=== PATIENT | female | born 1970 | race Caucasian/White ===

== ENCOUNTER 2017-03-25 11:44 | Emergency (ER) | payer SELFPAY ==
[2017-03-25 12:47] LABS: Basophils % (Auto) 0.4 % (0.0-1.8); Eosinophils % (Auto) 1.2 % (0.0-4.3); Hemoglobin 13.3 gm/dl (10.1-14.3); Mean Corpuscular HGB Conc 33 % (30-34); Mean Corpuscular Hemoglobin 30 pg (28-32); Mean Corpuscular Volume 91 fl (79-97); Platelet Count 234 K/mm3 (140-440); Red Blood Count 4.42 M/mm3 (3.65-5.03); Red Cell Distribution Width 13.3 % (13.2-15.2); White Blood Count 6.8 K/mm3 (4.5-11.0)
[2017-03-25 13:01] LABS: Partial Thromboplastin Time 29.7 Sec. (24.2-36.6)
[2017-03-25 13:04] LABS: Creatine Kinase 64 units/L (30-135)
[2017-03-25 13:11] LABS: Creatine Kinase MB < 1.0 ng/mL (0.0-4.0)
--- NOTE | 2017-03-25 15:21 | Emergency Department Report ---
ED General Adult HPI - General Chief complaint: Chest Pain Stated complaint: HEADACHE/FACE PAIN Time Seen by Provider: 03/25/17 15:20 Source: patient, insole and outsole splitter Mode of arrival: Ambulatory Limitations: No Limitations - History of Present Illness Initial comments: Apparently there was a substantial language barrier edge triage when this patient arrived. According to the triage note the patient had bilateral jaw pain and neck pain and throat pain felt like it was closing as well as sensory symptoms of the right hand for 2 days. There is no mention of a headache except in the attending reason: "Headache/face pain". Patient had a cardiac workup ordered but did not complain to me of any chest symptoms when I obtained the history and Citizen Of [place]. She did say that she had not had headaches like this before and she was concerned because her right hand felt heavy. She stated that she was able to grasp and use her right hand normally and that she had normal feeling in the right hand. She had no difficulty with her coordination otherwise she denies any problems with gait either. Patient states that at this time she is not having a headache at all. She does admit to some problems with anxiety. She does not have a primary care physician she states. -: Gradual, days(s) Location: head Radiation: non-radiation Quality: aching Consistency: intermittent, now resolved Improves with: none Worsens with: none Associated Symptoms: denies other symptoms (right hand heaviness) Treatments Prior to Arrival: none - Related Data Previous Rx's Medication Instructions Recorded Last Taken Type Butalb/Acetaminophen/Caffeine 1 cap PO Q6HR PRN #10 cap 03/25/17 Unknown Rx [Fioricet 50-300-40 mg CAP] Allergies Allergy/AdvReac Type Severity Reaction Status Date / Time No Known Allergies Allergy Unverified 03/25/17 12:10 ED Review of Systems ROS: Stated complaint: HEADACHE/FACE PAIN Other details as noted in HPI Constitutional: denies: chills, fever Eyes: denies: eye pain, eye discharge, vision change ENT: denies: ear pain, throat pain Respiratory: denies: cough, shortness of breath, wheezing Cardiovascular: denies: chest pain, palpitations Endocrine: no symptoms reported Gastrointestinal: denies: abdominal pain, nausea, diarrhea Genitourinary: denies: urgency, dysuria, discharge Musculoskeletal: as per HPI, myalgia. denies: back pain, joint swelling, arthralgia Skin: denies: rash, lesions Neurological: headache. denies: weakness, paresthesias Psychiatric: denies: anxiety, depression Hematological/Lymphatic: denies: easy bleeding, easy bruising ED Past Medical Hx - Past Medical History Previous Medical History?: No Additional medical history: Anxiety - Social History Smoking Status: Never Smoker Substance Use Type: None - Medications Home Medications: Home Medications Medication Instructions Recorded Confirmed Last Taken Type Butalb/Acetaminophen/Caffeine 1 cap PO Q6HR PRN #10 cap 03/25/17 Unknown Rx [Fioricet 50-300-40 mg CAP] ED Physical Exam - General Limitations: No Limitations General appearance: alert, in no apparent distress - Head Head exam: Present: atraumatic, normocephalic - Eye Eye exam: Present: normal appearance. Absent: scleral icterus - ENT ENT exam: Present: mucous membranes moist - Neck Neck exam: Present: normal inspection - Respiratory Respiratory exam: Present: normal lung sounds bilaterally. Absent: respiratory distress - Cardiovascular Cardiovascular Exam: Present: regular rate, normal rhythm. Absent: systolic murmur, diastolic murmur, rubs, gallop - GI/Abdominal GI/Abdominal exam: Present: soft, normal bowel sounds. Absent: distended, tenderness, guarding, rebound, rigid - Extremities Exam Extremities exam: Present: normal inspection - Back Exam Back exam: Present: normal inspection - Neurological Exam Neurological exam: Present: alert, oriented X3, CN II-XII intact, normal gait, other (no drift upper extremities, normal sensory exam. Normal cerebellar testing.). Absent: motor sensory deficit - Psychiatric Psychiatric exam: Present: normal affect, normal mood - Skin Skin exam: Present: warm, dry, intact, normal color. Absent: rash ED Course Vital Signs 03/25/17 03/25/17 03/25/17 12:04 13:27 13:31 Temperature 98.5 F Pulse Rate 79 83 Respiratory 18 20 Rate Blood Pressure 115/92 109/60 122/91 O2 Sat by Pulse 100 94 99 Oximetry 03/25/17 03/25/17 03/25/17 13:45 14:00 14:15 Temperature Pulse Rate 70 65 71 Respiratory 19 22 16 Rate Blood Pressure 122/91 104/60 104/60 O2 Sat by Pulse 97 99 97 Oximetry 03/25/17 03/25/17 03/25/17 14:30 14:45 15:00 Temperature Pulse Rate 66 74 69 Respiratory 15 19 20 Rate Blood Pressure 100/65 100/65 98/64 O2 Sat by Pulse 99 98 98 Oximetry 03/25/17 03/25/17 03/25/17 15:15 15:30 15:45 Temperature Pulse Rate 73 75 72 Respiratory 17 22 21 Rate Blood Pressure 100/65 104/63 98/64 O2 Sat by Pulse 99 99 99 Oximetry 03/25/17 03/25/17 03/25/17 16:00 16:15 16:30 Temperature Pulse Rate 74 76 73 Respiratory 20 21 19 Rate Blood Pressure 101/69 101/69 106/66 O2 Sat by Pulse 99 97 Oximetry ED Medical Decision Making - Lab Data Result diagrams: 03/25/17 12:20 Laboratory Results - last 24 hr 03/25/17 03/25/17 03/25/17 12:20 12:20 12:20 WBC 6.8 RBC 4.42 Hgb 13.3 Hct 40.0 MCV 91 MCH 30 MCHC 33 RDW 13.3 Plt Count 234 Lymph % (Auto) 33.7 Bowman % (Auto) 8.1 H Eos % (Auto) 1.2 Baso % (Auto) 0.4 Lymph # 2.3 Bowman # 0.6 Eos # 0.1 Baso # 0.0 Seg Neutrophils % 56.6 Seg Neutrophils # 3.9 PT 13.1 INR 1.00 APTT 29.7 Thrombin Time 15.0 L Total Creatine Kinase 64 CK-MB (CK-2) < 1.0 CK-MB (CK-2) Rel Index 1.5 Troponin T < 0.010 - EKG Data -: EKG Interpreted by Me EKG shows normal: sinus rhythm, axis, intervals, QRS complexes, ST-T waves - EKG Data Interpretation: no acute changes - Radiology Data interpreted by me: CT the head was normal per radiologist Critical care attestation.: If time is entered above; I have spent that time in minutes in the direct care of this critically ill patient, excluding procedure time. ED Disposition Clinical Impression: Cephalalgia Qualifiers: Headache type: unspecified Headache chronicity pattern: unspecified pattern Intractability: intractable Qualified Code(s): R51 - Headache Disposition: DC-01 TO HOME OR SELFCARE Is pt being admited?: No Does the pt Need Aspirin: No Condition: Stable Instructions: Acute Headache (ED) Additional Instructions: Return any acute change or problem. Follow-up with the primary care provider. Rx as needed for headache. Prescriptions: Butalb/Acetaminophen/Caffeine [Fioricet 50-300-40 mg CAP] 1 cap PO Q6HR PRN #10 cap PRN Reason: Headache Referrals: PRIMARY CARE, [Primary Care Provider] - 3-5 Days CHANG PLASCENCIA MD [Staff Physician] - 3-5 Days [facility] [Provider Group] - 3-5 Days Time of Disposition: 18:10
--- NOTE | 2017-03-25 17:10 | Cat Scan Report ---
FINAL REPORT PROCEDURE: CT head without contrast. TECHNIQUE: Computerized tomography of the head was performed without contrast material. HISTORY: Headache. COMPARISON: No prior studies are available for comparison. FINDINGS: The ventricles are normal in size. The mccarty matter and white matter appear normal. There are no mass lesions. There is no intracranial hemorrhage. The calvarium appears intact. The mastoid air cells and paranasal sinuses are clear as far as visualized. IMPRESSION: Normal study.
--- NOTE | 2017-03-25 18:07 | XRay Report ---
FINAL REPORT EXAM: XR CHEST 1V AP HISTORY: KENNA with Chest pain TECHNIQUE: Single-view chest PRIORS: None. FINDINGS: Calcific densities are seen projecting over the left lung base. These may represent granulomata.No focal consolidations are seen in the lungs.The cardiomediastinal silhouette is within normal limits for size and contour. No acute osseous abnormality is identified. IMPRESSION: 1. No definite radiographic evidence of acute cardiopulmonary disease. 2. No focal infiltrate is identified.
[2017-03-25 18:30] VITALS: BP 132/81
== END 2017-03-25 18:30 | disposition home or self-care (01) ==
LOC: ED 11:44
DX: R51 Headache (principal); F41.9 Anxiety disorder, unspecified
CPT/HCPCS: 36415; 70450; 71010; 82550; 82553; 82962; 84484; 85025; 85610; 85670; 85730; 93005; 93010